=== PATIENT | female | born 1940 | race Caucasian/White ===

== ENCOUNTER 2020-07-22 09:08 | Outpatient (CLI) | payer MEDICARE, SELFPAY ==
[2020-07-22 09:26] LABS: Basophils Percent Auto 0.6 % (0.2-1.2); Eosinophils Absolute Auto 0.1 K/mm3 (0-0.3); Eosinophils Percent Auto 2.3 % (0-4.4); Hematocrit 34.4 % (37.0-47.0); Hemoglobin 10.6 g/dL (12.0-15.0); Immature Granulocyte Absolute 0.01 K/mm3 (0.00-0.031); Immature Granulocyte Percent A 0.2 % (0-0.5); Immature Reticulocyte Fraction 14.9 % (3.0-15.9); Lymphocytes Absolute Auto 1.28 K/mm3 (0.9-3.2); Lymphocytes Percent Auto 26.3 % (18.3-44.2); Mean Corpuscular HGB Conc 30.8 g/dl (32-36); Mean Corpuscular Hemoglobin 24.7 pg (26-34); Mean Corpuscular Volume 80.2 fl (80-100); Mean Platelet Volume 9.6 fl (7.4-10.4); Monocytes Absolute Auto 0.4 K/mm3 (0.1-0.6); Monocytes Percent Auto 8.6 % (2.6-8.5); Platelet Count Result 196 k/mm3 (150-375); Red Blood Count 4.29 M/mm3 (4.2-5.4); Red Cell Distribution Width 17.1 % (11.5-14.5); Reticulocyte Hemoglobin Conten 30.4 pg (28.2-35.7); Reticulocyte Percent 2.18 % (0.7-4.3); Reticulocytes Absolute 0.09 B/L (32.2-175.7); White Blood Count 4.9 K/mm3 (4.5-10.0)
[2020-07-22 11:01] LABS: Iron 46 ug/dL (37-170)
[2020-07-22 11:02] LABS: Alanine Aminotransferase 17 U/L (4-35); Albumin Level 4.3 g/dL (3.5-5.1); Alkaline Phosphatase 40 U/L (38-126); Anion Gap 9 mmol/L (8-16); Aspartate Amino Transferase 26 U/L (14-36); Bilirubin,Total 0.4 mg/dL (0.2-1.3); Blood Urea Nitrogen 27 mg/dL (7-17); Calcium 9.7 mg/dL (8.4-10.2); Carbon Dioxide 25 mmol/L (22-30); Chloride 103 mmol/L (98-107); Estimated Glomerular Filt Rate > 60; Glucose 273 mg/dL (65-105); Lactate Dehydrogenase 476 U/L (313-618); Potassium 4.6 mmol/L (3.4-5.0); Sodium 137 mmol/L (137-145)
[2020-07-22 11:10] LABS: Percent Iron Saturation 8 % (20-50)
[2020-07-22 12:08] LABS: Folic Acid 6.4 ng/mL (2.76->20)
== END 2020-07-22 09:09 | disposition home or self-care (01) ==
PROVIDERS: Visit Provider Internal Medicine Hematology & Oncology
DX: D64.9 Anemia, unspecified (principal)
CPT/HCPCS: 36415; 80053; 82607; 82728; 82746; 83540; 83550; 83615; 84443; 85025; 85046

== ENCOUNTER 2021-04-15 17:50 | Observation (INO) | payer MEDICARE, SELFPAY ==
[2021-04-15 18:01] VITALS: BP 138/42; PULSE 70; RESP 16; TEMP 36.6; O2SAT 97
[2021-04-15 19:59] VITALS: BP 148/54; PULSE 67; RESP 14; TEMP 36.8; O2SAT 98
[2021-04-15 20:01] LABS: Basophils Percent Auto 0.5 % (0.2-1.2); Eosinophils Absolute Auto 0.2 K/mm3 (0-0.3); Eosinophils Percent Auto 2.7 % (0-4.4); Hematocrit 26.2 % (37.0-47.0); Hemoglobin 7.6 g/dL (12.0-15.0); Immature Granulocyte Absolute 0.02 K/mm3 (0.00-0.031); Immature Granulocyte Percent A 0.3 % (0-0.5); Immature Reticulocyte Fraction 26.5 % (3.0-15.9); Lymphocytes Absolute Auto 1.54 K/mm3 (0.9-3.2); Lymphocytes Percent Auto 25.8 % (18.3-44.2); Mean Corpuscular Hemoglobin 21.1 pg (26-34); Mean Corpuscular Volume 72.8 fl (80-100); Monocytes Absolute Auto 0.6 K/mm3 (0.1-0.6); Monocytes Percent Auto 9.4 % (2.6-8.5); Neutrophils Absolute Auto 3.7 K/mm3 (1.3-6.7); Neutrophils Percent Auto 61.3 % (45.5-73.1); Platelet Count Result 187 k/mm3 (150-375); Red Cell Distribution Width 16.2 % (11.5-14.5); Reticulocyte Hemoglobin Conten 19.6 pg (28.2-35.7); Reticulocyte Percent 2.09 % (0.7-4.3); Reticulocytes Absolute 0.08 B/L (32.2-175.7)
[2021-04-15 20:15] VITALS: BP 148/59; PULSE 69; RESP 18; O2SAT 98
[2021-04-15 20:20] LABS: Alanine Aminotransferase 11 U/L (4-35); Albumin Level 4.2 g/dL (3.5-5.1); Alkaline Phosphatase 41 U/L (38-126); Anion Gap 10 mmol/L (8-16); Aspartate Amino Transferase 27 U/L (14-36); Bilirubin,Total 0.3 mg/dL (0.2-1.3); Blood Urea Nitrogen 29 mg/dL (7-17); Calcium 9.4 mg/dL (8.4-10.2); Carbon Dioxide 24 mmol/L (22-30); Chloride 107 mmol/L (98-107); Estimated CRCL calculation 31 ml/min; Estimated Glomerular Filt Rate 43; Glucose 193 mg/dL (65-105); Potassium 4.1 mmol/L (3.4-5.0); Sodium 141 mmol/L (137-145)
[2021-04-15 20:21] LABS: Glucose Point of Care 181 mg/dl (65-105)
[2021-04-15 20:29] LABS: Anisocytosis 2+ (NORMAL); Hypochromasia 1+ (NORMAL); Platelet Estimate Adequate (Adequate)
[2021-04-15 21:00] LABS: Iron 25 ug/dL (37-170)
[2021-04-15 21:09] LABS: Percent Iron Saturation 5 % (20-50)
--- NOTE | 2021-04-15 21:16 | ED.GENADULT ---
HPI - General Adult General Chief complaint: Recheck/Abnormal Lab/Rx Stated complaint: LOW BLOOD COUNTS Time Seen by Provider: 04/15/21 20:16 Source: patient and family Mode of arrival: ambulatory Limitations: no limitations History of Present Illness HPI narrative: 80-year-old with a history of A. fib on Eliquis, hypertension, diabetes, aortic stenosis, chronic iron deficiency anemia was brought in by family with low hemoglobin. Patient states that she was getting preop labs and was found to have low hemoglobin. Her doctor called her to go to the ER. Patient complains of shortness of breath with minimal ambulation. She denied any chest pain. She denies any blood or black-colored stool. No history of abdominal pain as per the daughter she is scheduled for TAVR in the next few days. Onset (ago): unknown Associated symptoms: denies other symptoms Review of Systems Review of Systems: All systems reviewed & are unremarkable except as noted in HPI and below Constitutional: Constitutional: Reports no additional constitutional complaints Eyes: Eyes: Reports no additional eye complaints ENT: Reports system reviewed and no additional complaints, except as documented Cardiovascular: Cardiovascular: Reports as per HPI Respiratory: Respiratory: Reports dyspnea Gastrointestinal: Gastrointestinal: Reports no additional gastrointestinal complaints Musculoskeletal: Musculoskeletal: Reports no additional musculoskeletal complaints Integumentary/Breasts: Skin/Breast: Reports system reviewed and no additional complaints, except as docu Exam Narrative: Exam Narrative: GENERAL: Well-appearing, well-nourished, and in no acute distress. Very hard of hearing HEAD: Normocephalic, atraumatic. EYES: PERRLA and EOMI. ENT: Nares clear, no rhinorrhea or epistaxis. Mucous membranes moist. NECK: Supple. CHEST: Clear to auscultation. No respiratory distress. HEART: Regular rate and rhythm. Systolic murmur heard in the aortic area normal peripheral pulses. ABDOMEN: Soft, nontender, nondistended, normal active bowel sounds. Stool guaiac negative EXTREMITIES: Normal range of motion. No edema. SKIN: Warm, dry, no rash. NEURO: No focal deficits. Alert and oriented x3. PSYCH: Normal mood and affect. Course Course Emergency Course: Inform patient and family about her lab work. Will admit to the hospital for blood transfusion as she is quite symptomatic. Discussed with Dr. Montero who admit agreed to admit the patient and was at the bedside to evaluate the patient Vital Signs Vital signs: Vital Signs Temperature 36.6 C 04/15/21 18:01 Pulse Rate 70 04/15/21 18:01 Respiratory Rate 16 04/15/21 18:01 Blood Pressure 138/42 L 04/15/21 18:01 Pulse Oximetry 97 04/15/21 18:01 Temperature 36.8 C 04/15/21 19:59 Pulse Rate 69 04/15/21 20:15 Respiratory Rate 18 04/15/21 20:15 Blood Pressure 148/59 H 04/15/21 20:15 Pulse Oximetry 98 04/15/21 20:15 Medical Decision Making Vital Signs Vital Signs: Vital Signs Temperature 36.6 C 04/15/21 18:01 Pulse Rate 70 04/15/21 18:01 Respiratory Rate 16 04/15/21 18:01 Blood Pressure 138/42 L 04/15/21 18:01 Pulse Oximetry 97 04/15/21 18:01 Temperature 36.8 C 04/15/21 19:59 Pulse Rate 69 04/15/21 20:15 Respiratory Rate 18 04/15/21 20:15 Blood Pressure 148/59 H 04/15/21 20:15 Pulse Oximetry 98 04/15/21 20:15 Lab Data Result diagrams: 04/15/21 19:55 04/15/21 19:55 Labs: Lab Results 04/15/21 04/15/21 04/15/21 Range/Units 19:55 19:55 19:55 WBC 6.0 (4.5-10.0) K/mm3 RBC 3.60 L (4.2-5.4) M/mm3 Hgb 7.6 L (12.0-15.0) g/dL Hct 26.2 L (37.0-47.0) % MCV 72.8 L (80-100) fl MCH 21.1 L (26-34) pg MCHC 29.0 L (32-36) g/dl RDW 16.2 H (11.5-14.5) % Plt Count 187 (150-375) k/mm3 MPV 10.0 (7.4-10.4) fl Immature Gran % (Auto) 0.3 (0-0.5) % Neut % (Auto) 61.3 (45.5-73
[2021-04-15 23:55] VITALS: BMI 29.7
--- NOTE | 2021-04-15 23:58 | ADMGEN ---
This patient, Una Delong, was admitted to IMU Room 232-01. Patient/family oriented to hospital policies and general routines including ID bracelet, bed and alarms, visiting hours, pain management, procedures, bathroom and other care routines, personal items, smoking policy, room service/diet, and visiting hours. Information on how to activate the Rapid Response Team has been discussed. Patient/Family are encouraged to report perceived risks to care and to ask questions if they do not understand what they are told or what they should do. Vanessa CUNNINGHAM arrived [id number]
[2021-04-16] VITALS (12 sets, daily range): BP systolic 118–150; BP diastolic 48–58; PULSE 60–81; RESP 12–20; TEMP 36.2–36.8; O2SAT 92–96
[2021-04-16 01:32] LABS: Glucose Point of Care 265 mg/dl (65-105)
--- NOTE | 2021-04-16 02:57 | PC.NURSE ---
Call placed to Dr. Butler at 0135 cause ED note states admitted for blood transfusion but didn't have orders for any. Type and Screen completed.
[2021-04-16] MEDS: ACETAMINOPHEN 325 MG TABLET 650 MG PO (03:39)
--- NOTE | 2021-04-16 04:47 | PM.IMHP ---
H&P: HPI History of Present Illness Date/Time: 04/16/21 04:47 Chief Complaint: Fatigue Narrative: This is a 80-year-old female with past medical history significant for type 2 diabetes mellitus, dyslipidemia, hypertension, iron deficiency anemia, aortic stenosis patient is going for repair. Patient presented to the emergency room due to increasingly worsening fatigue and shortness of breath she had been started in the outpatient setting for iron deficiency anemia she is in the midst of getting approved for IV iron infusion. Today in the emergency room she was found to have decreased hemoglobin. Patient denies any hemoptysis hematemesis hematochezia nor melena, she denies any nausea vomiting diarrhea abdominal pain, has had shortness of breath no cough no sputum production no fevers no rigors no chills also has had palpitations decreased stamina no leg swelling. Preliminary workup was significant for hemoglobin of 7.6 Review of Systems Review of Systems: All systems reviewed & are unremarkable except as noted in HPI and below Constitutional: Constitutional: Reports no additional constitutional complaints Eyes: Eyes: Reports no additional eye complaints ENT: Reports system reviewed and no additional complaints, except as documented Cardiovascular: Cardiovascular: Reports as per HPI and Reports dyspnea Respiratory: Respiratory: Reports dyspnea Gastrointestinal: Gastrointestinal: Reports no additional gastrointestinal complaints Musculoskeletal: Musculoskeletal: Reports no additional musculoskeletal complaints Integumentary/Breasts: Skin/Breast: Reports system reviewed and no additional complaints, except as docu COUNT INCLUDES THE [facility] Family History Family History (Updated 04/15/21 @ 23:54 by Carol Sumner RN) Father Lung cancer Sibling Lung cancer Mother Colon cancer Social History Social History Smoking status: Never smoker Second hand tobacco smoke exposure: Yes Alcohol intake: never Substance use: never Gender identity (if verbalized by the patient): Female Spiritual care concerns: No Meds Home Medications and Allergies Home Medications Medication Instructions Recorded Confirmed Type diltiazem HCl 180 mg PO BID 04/16/21 04/16/21 History fenofibrate nanocrystallized 145 mg PO DAILY 04/16/21 04/16/21 History glipizide 10 mg PO DAILY 04/16/21 04/16/21 History insulin glargine [Lantus U-100 60 unit SUBCUT DAILY 04/16/21 04/16/21 History Insulin] metformin [Glucophage] 1,000 mg PO DAILY 04/16/21 04/16/21 History metoprolol tartrate 25 mg PO BID 04/16/21 04/16/21 History rosuvastatin 20 mg PO DAILY 04/16/21 04/16/21 History Allergies Allergy/AdvReac Type Severity Reaction Status Date / Time lisinopril AdvReac Cough Verified 04/15/21 22:39 meperidine [From Demerol] AdvReac Nausea and Verified 04/15/21 22:39 Vomiting Vital Signs Vital Signs - 24 hr 04/15/21 18:01 04/15/21 19:59 04/15/21 20:15 Temperature 98 F 98.3 F Pulse Rate 70 67 69 Respiratory Rate 16 14 18 Blood Pressure 138/42 L 148/54 H 148/59 H Pulse Oximetry 97 98 98 04/16/21 00:00 04/16/21 02:00 Temperature 97.6 F Pulse Rate 64 64 Respiratory Rate 16 Blood Pressure 129/51 L Pulse Oximetry 96 Exam Narrative: Exam Narrative: Laying in [facility] Const: General: comfortable, no acute distress, well developed, alert, awake and other (Generalized pallor) Nutritional Appearance: average body habitus Orientation/consciousness: patient oriented x3 HENMT: Head: normal to inspection, normocephalic and atraumatic Ears: hearing grossly normal bilaterally Face and sinus: normal facial exam Eyes: General: appearance normal, both eyes and all related structures Pupils: Equal, round and reactive pupils present EOM: EOMs intact bilaterally Neck: Neck: full ROM, no lymphadenopathy and no JVD Thyroid: thyroid normal Lymphatic: no lymphadenopathy noted Resp: Effort
[2021-04-16 05:03] LABS: Glucose Point of Care 146 mg/dl (65-105)
[2021-04-16 05:35] LABS: Basophils Percent Auto 0.6 % (0.2-1.2); Eosinophils Absolute Auto 0.2 K/mm3 (0-0.3); Eosinophils Percent Auto 3.5 % (0-4.4); Hematocrit 26.7 % (37.0-47.0); Hemoglobin 7.6 g/dL (12.0-15.0); Immature Granulocyte Absolute 0.03 K/mm3 (0.00-0.031); Immature Granulocyte Percent A 0.6 % (0-0.5); Lymphocytes Absolute Auto 1.35 K/mm3 (0.9-3.2); Lymphocytes Percent Auto 26.4 % (18.3-44.2); Mean Corpuscular HGB Conc 28.5 g/dl (32-36); Mean Corpuscular Hemoglobin 20.7 pg (26-34); Mean Corpuscular Volume 72.6 fl (80-100); Mean Platelet Volume 10.1 fl (7.4-10.4); Monocytes Absolute Auto 0.5 K/mm3 (0.1-0.6); Neutrophils Percent Auto 58.9 % (45.5-73.1); Platelet Count Result 185 k/mm3 (150-375); Red Blood Count 3.68 M/mm3 (4.2-5.4); Red Cell Distribution Width 16.2 % (11.5-14.5); White Blood Count 5.1 K/mm3 (4.5-10.0)
[2021-04-16 06:04] LABS: Platelet Estimate Adequate (Adequate)
[2021-04-16 06:05] LABS: Anisocytosis 1+ (NORMAL); Hypochromasia 1+ (NORMAL)
--- NOTE | 2021-04-16 06:54 | PC.NURSE ---
Pt called out ~0335 asking for nurse, asked if nurse should bring anything pt requested tylenol. Pts nurse was in another pts room. This nurse brought her tylenol, pt became upset, complaining that her nurse couldn't even come speak with her. This nurse explained she would be happy to come talk with her after she finished with her other patient. Pt remained upset, with multiple complaints about waiting for her blood products to be ordered, it was explained to her multiple times that the doctor had been called and her nurse was working on it.
--- NOTE | 2021-04-16 07:04 | PC.NURSE ---
On my third attempt to call I spoke with Dr. Montero again she had been tied up w in emergencies and she gave me an order for 1 unit PRBC. Patient has been very angry and ranted about not recieving her blood fast enough. After I took her the consent and went to explain it she informed me she needed to read it. I said ok and told her I would be back. While I was off the floor assisting another patient she called out mad that no one explained the consent to her.
[2021-04-16] MEDS: METOPROLOL TARTRATE 25 MG TABLET PO (08:51)
[2021-04-16] MEDS: FENOFIBRATE NANOCRYSTALLIZED 145 MG TABLET PO (08:51)
[2021-04-16] MEDS: ROSUVASTATIN 10 MG TABLET 20 MG PO (08:52)
[2021-04-16] MEDS: dilTIAZem HCL CD 180 MG CAP.ER.24H PO (08:52)
[2021-04-16 08:54] LABS: Glucose Point of Care 153 mg/dl (65-105)
[2021-04-16 12:20] LABS: Hematocrit 29.6 % (37.0-47.0); Hemoglobin 8.8 g/dL (12.0-15.0)
[2021-04-16 12:23] LABS: Glucose Point of Care 275 mg/dl (65-105)
[2021-04-16] MEDS: INSULIN ASPART (*BKC) 100 UNITS/ML SUB-Q (12:28)
[2021-04-16] MEDS: INSULIN GLARGINE (*BKC) 100 UNITS/ML 60 UNITS SUB-Q (12:28)
--- NOTE | 2021-04-16 14:05 | PC.NURSE ---
This patient, Una Delong, was transferred to [325 ] on 04/16/21 at 1335. Personal belongings sent with patient. Report given to [ ]. Appropriate documentation sent with patient.
--- NOTE | 2021-04-16 15:25 | PM.DS ---
DS: Admitting Diagnosis Admitting Diagnosis Admitting Diagnosis: Chief Complaint: Fatigue DS: Discharge Diagnosis Discharge Diagnosis (1) KINZA (iron deficiency anemia): Code(s): D50.9 - Iron deficiency anemia, unspecified Status: Acute Assessment and Plan: Patient will get 1 unit of packed red blood cells transfusion in view that she is very symptomatic Is in the midst of getting approved for IV iron infusion Will follow-up in outpatient setting with Hematology-Oncology Supportive care (2) Aortic stenosis: Code(s): I35.0 - Nonrheumatic aortic (valve) stenosis Status: Acute Assessment and Plan: On beta-blockers Will go for repair (3) Atrial fibrillation: Code(s): I48.91 - Unspecified atrial fibrillation Status: Acute Assessment and Plan: Stable On calcium channel violet diltiazem Continue to monitor Holding blood thinners Patient is on novel anticoagulant at home (4) Diabetes mellitus: Code(s): E11.9 - Type 2 diabetes mellitus without complications Status: Acute Assessment and Plan: Holding metformin Holding glipizide Continue insulin Continue to monitor Follow-up in outpatient setting Quarterly hemoglobin A1c Stable (5) HTN (hypertension), benign: Code(s): I10 - Essential (primary) hypertension Status: Acute DS: Summary Hospital Course Reason for hospitalization: Chief Complaint: Fatigue Narrative: This is a 80-year-old female with past medical history significant for type 2 diabetes mellitus, dyslipidemia, hypertension, iron deficiency anemia, aortic stenosis patient is going for repair. Patient presented to the emergency room due to increasingly worsening fatigue and shortness of breath she had been started in the outpatient setting for iron deficiency anemia she is in the midst of getting approved for IV iron infusion. Today in the emergency room she was found to have decreased hemoglobin. Patient denies any hemoptysis hematemesis hematochezia nor melena, she denies any nausea vomiting diarrhea abdominal pain, has had shortness of breath no cough no sputum production no fevers no rigors no chills also has had palpitations decreased stamina no leg swelling. Preliminary workup was significant for hemoglobin of 7.6 Hospital Course: patient is 80-year-old female presented with fatigue secondary to anemia plan was to get a GI consult however because of the weekend there is no GI available for any procedure, patient was transfused 2 units of pack RBC remains clinically stable, will discharge the patient home today patient returns to hospital on Monday and will be admitted for GI workup and further recommendation to follow. Status at Discharge Functional status at discharge: independent ambulation Overall status at discharge: patient is back to baseline Time Spent with Patient Time attestation: Total time spent providing and/or coordinating discharge services: Patient was seen and examined at the time of the discharge Condition at discharge is stable Code status: Full code. Time spent preparing discharge summary, discharge medications, discussing discharge planning with shoe parts caser and patient is 35 minutes. Time spent: Greater than 30 minutes Exam Narrative: Exam Narrative: elderly frail Patient is comfortable, NAD HEENT: eyes are clear and none icteric LUNGS:CTA HEART: RR S1S2 ABD: BS+, Soft and nontender Lower extremities: no edema SKIN: nonjaundiced Neuro: grossly intact. DS: Data Data Completed and Pending Labs on day of discharge: Labs from last 24 hours 04/16/21 04/16/21 04/16/21 12:02 11:23 07:54 WBC RBC Hgb 8.8 L Hct 29.6 L MCV MCH MCHC RDW Plt Count MPV Immature Gran % (Auto) Neut % (Auto) Lymph % (Auto) [place] % (Auto) Eos % (Auto) Baso % (Auto) Lymph # (Auto) [place] # (Auto) Eos # (Auto) Baso # (Auto) Abs Immat Gran (auto) Absolute
[2021-04-16 17:28] LABS: Immature Reticulocyte Fraction 25.4 % (3.0-15.9); Reticulocyte Hemoglobin Conten 20.3 pg (28.2-35.7); Reticulocyte Percent 1.98 % (0.7-4.3); Reticulocytes Absolute 0.08 B/L (32.2-175.7)
--- NOTE | 2021-04-16 17:37 | PC.NURSE ---
Pt is being discharged home with her daughter. Dr Plata and Dr Mosher have requested that the pt comes back on Monday as a direct admit for a GI consult and an iron infusion. Went over discharge instructions with pt and daughter, daughter exhibited good understanding. Pt's IV has been removed. Pt stated that Dr Mosher had requested she stopped taking her Eliquis due to her being scheduled for a procedure on Mon of next week. This was also passed on to the daughter. Dr Plata had me instruct the pt to be NPO after midnight Sun night/Monday morning and to only take heart medication with a small sip of water. Dr Plata instructed me to tell pt's daughter to call Dr. Mosher's office Monday morning when they are leaving the house to come to the hospital, and he will provide them with an admitting Dr. They are to go to admitting and not ER. Pt's daughter exhibits good understanding of all discharge instructions and took notes as we were speaking. Pt assisted to the front of the building by wheelchair and assisted into her daughter's car, by staff.
== END 2021-04-16 17:30 | disposition home or self-care (01) ==
LOC: ANHED 21:56 → ANHIMU 23:04 → ANH3MEDSUR 04-16 15:25 → ANHIMU 04-20 10:04
PROVIDERS: Internal Medicine Hematology & Oncology; Admitting Provider Internal Medicine; Emergency Provider Family Medicine; PCP Internal Medicine; Visit Provider Family Medicine
DX: D50.9 Iron deficiency anemia, unspecified (principal); R53.83 Other fatigue; I35.0 Nonrheumatic aortic (valve) stenosis; I48.91 Unspecified atrial fibrillation; E11.9 Type 2 diabetes mellitus without complications; E78.5 Hyperlipidemia, unspecified; I10 Essential (primary) hypertension; R06.02 Shortness of breath; Z79.4 Long term (current) use of insulin; Z79.01 Long term (current) use of anticoagulants
CPT/HCPCS: 36415; 36430; 80053; 82948; 83540; 83550; 85014; 85018; 85025; 85046; 86850; 86900; 86901; 86923; 96374; 99285; A9270; G0378; J1756; J1815; P9016

== ENCOUNTER 2021-04-19 15:00 | Observation (INO) | payer MEDICARE, SELFPAY ==
--- NOTE | 2021-04-19 15:00 | ADMGEN ---
This patient, Una Delong, was admitted to Medical Room 349-01. Patient/family oriented to hospital policies and general routines including ID bracelet, bed and alarms, visiting hours, pain management, procedures, bathroom and other care routines, personal items, smoking policy, room service/diet, and visiting hours. Information on how to activate the Rapid Response Team has been discussed. Patient/Family are encouraged to report perceived risks to care and to ask questions if they do not understand what they are told or what they should do.
[2021-04-19 15:34] VITALS: BP 114/55; PULSE 67; RESP 16; TEMP 36.1; O2SAT 94
[2021-04-19 15:51] VITALS: BMI 30.8
[2021-04-19 16:40] LABS: Glucose Point of Care 152 mg/dl (65-105)
--- NOTE | 2021-04-19 17:02 | WPDGICN ---
Assessment and Plan Assessment and plan (1) Anemia: Qualifiers: Anemia type: unspecified type Qualified Code(s): D64.9 - Anemia, unspecified Code(s): D64.9 - Anemia, unspecified Status: Acute Assessment and Plan: With iron deficiency and a low MCV, she is likely anemic due to chronic blood loss, possible GI source. We will schedule her for EGD and colonoscopy to be done tomorrow. I Discussed the procedures and the prep the patient and her daughter (2) Atrial fibrillation: Code(s): I48.91 - Unspecified atrial fibrillation Status: Acute Assessment and Plan: for now she is off the blood thinner. Ultimately she needs to get her aortic stenosis repaired GI Consult Note Consult date/time: 04/19/21 17:02 HPI: Una Delong is a 80 year old female With a past history of type 2 diabetes, dyslipidemia, , hypertension, and aortic stenosis for which she was going to get repair. She was found a few days ago to be markedly anemic with a hemoglobin of 7.6. She denies seen blood in her stools denies abdominal pain nausea vomiting or significant weight loss. She did receive 1 unit of blood over the weekend and an iron infusion. She is hospitalized today for further treatment to include iron infusion. She does have a family history of colon cancer, her mother and patient herself had a polyp removed at least 10 years ago. She had been on Eliquis but this was held since last Monday. Review of Systems Review of Systems: All systems reviewed & are unremarkable except as noted in HPI and below PMFSH Family History Family History Father Lung cancer Sibling Lung cancer Mother Colon cancer Social History Social History Smoking status: Never smoker Second hand tobacco smoke exposure: Yes Alcohol intake: never Substance use: never Substance use type: does not use Gender identity (if verbalized by the patient): Female Spiritual care concerns: No Meds Home Medications and Allergies Home Medications Medication Instructions Recorded Confirmed Type Lantus U-100 Insulin 60 unit SUBCUT DAILY 04/16/21 04/19/21 History diltiazem HCl 180 mg PO BID 04/16/21 04/19/21 History fenofibrate nanocrystallized 145 mg PO DAILY 04/16/21 04/19/21 History glipizide 10 mg PO DAILY 04/16/21 04/19/21 History metformin [Glucophage] 1,000 mg PO DAILY 04/16/21 04/19/21 History metoprolol tartrate 25 mg PO BID 04/16/21 04/19/21 History rosuvastatin 20 mg PO DAILY 04/16/21 04/19/21 History Allergies Allergy/AdvReac Type Severity Reaction Status Date / Time lisinopril AdvReac Cough Verified 04/19/21 16:27 meperidine [From Demerol] AdvReac Nausea and Verified 04/19/21 16:27 Vomiting Vital Signs Vital Signs - 24 hr 04/19/21 15:34 Temperature 36.1 C L Pulse Rate 67 Respiratory Rate 16 Blood Pressure 114/55 L Pulse Oximetry 94 Exam Const: General: cooperative and healthy appearing HENMT: Ears: hearing grossly impaired Cardio: Rhythm: regular rhythm GI: Inspection: normal to inspection GI Palp: Yes Soft to palpation, No Tenderness to palpation present (GI) and Yes No hepatosplenomegaly present Auscultation: normal bowel sounds
[2021-04-19] MEDS: SODIUM CHLORIDE 0.9% IV 1,000 ML 75 ML IV CONT (17:22)
[2021-04-19] MEDS: PEG (High)/E-LYTE SOLN 4,000 ML BTL 3000 ML PO (17:22)
[2021-04-19 17:43] LABS: Partial Thromboplastin Time 29.9 SECONDS (22.3-36.8)
--- NOTE | 2021-04-19 19:00 | PM.IMHP ---
H&P: HPI History of Present Illness Date/Time: 04/19/21 19:00 Chief Complaint: Anemia. Narrative: This is a 80-year-old female with atrial fibrillation on anticoagulation, type 2 diabetes mellitus, hypertension, dyslipidemia, iron deficiency anemia, and aortic stenosis who is being directly admitted for further workup of anemia. She has been seeing Dr. Mosher for her anemia and more recently was started on iron infusions as oral iron cause her constipation. Last week she had preoperative labs drawn in anticipation of an upcoming TAVR and her hemoglobin had fallen to 7.6. She was admitted overnight, was transfused a unit of packed red blood cells, and was discharged home the following day on 04/16/2021. The patient's daughter called the hospital this morning with reports that the patient is to be directly admitted today for GI consultation for further evaluation of her mother's anemia. A discharge summary from the is not available for me to review but it is my understanding that Doctors Vidhi and Sherlyn communicated with each other today and the patient was indeed directly admitted this afternoon. At the time my evaluation the patient has just started her bowel prep in anticipation of upper and lower endoscopy per Dr. Cervantes tomorrow. She has no complaints aside from some frustration regarding the anemia, as she cannot have her TAVR and tell the anemia issue gets resolved. She has been taking Eliquis for paroxysmal atrial fibrillation though has been off of that for about a week due to this worsening anemia. She has never noticed blood in her stool or dark stools. She denies epigastric and abdominal pain. No significant GERD symptoms. She has not had any chest pain. Her shortness of breath seems to have improved somewhat after receiving an iron infusion recently. Review of Systems Review of Systems: Narrative: Twelve systems were reviewed with pertinent positives and negatives as per HPI. She denies fever, chills, and sweats. No cold or flu symptoms. No syncope or near syncope. No chest pain or palpitations. She has had some shortness of breath but that is improved after receiving an iron transfusion and blood transfusion last week. No lower extremity edema. She denies nausea and vomiting. No epistaxis, vaginal bleeding, or hematuria. Except as documented, all other systems were reviewed and are negative PMFSH Past Medical History Medical History (Updated 04/19/21 @ 19:24 by Danay Wilson PA-C) Aortic stenosis Dyslipidemia Hypertension Insulin dependent type 2 diabetes mellitus Iron deficiency anemia Paroxysmal atrial fibrillation Surgical History Surgical History (Updated 04/19/21 @ 19:24 by Danay Wilson PA-C) History of cardiac pacemaker in situ History of hysterectomy Family History Family History Father Lung cancer Sibling Lung cancer Mother Colon cancer Social History Social History (Updated 04/19/21 @ 22:39 by Danay Wilson PA-C) Social History: The patient lives in [place]. She is and was for 54 years. A grandson has been staying with her recently. She is a nonsmoker. No alcohol or illicit substance abuse. She designates her daughter Jed Salamanca as her emergency contact. Code status: Full code. Meds Home Medications and Allergies Home Medications Medication Instructions Recorded Confirmed Type Lantus U-100 Insulin 60 unit SUBCUT DAILY 04/16/21 04/19/21 History diltiazem HCl 180 mg PO BID 04/16/21 04/19/21 History fenofibrate nanocrystallized 145 mg PO DAILY 04/16/21 04/19/21 History glipizide 10 mg PO DAILY 04/16/21 04/19/21 History metformin [Glucophage] 1,000 mg PO DAILY 04/16/21 04/19/21 History metoprolol tartrate 25 mg PO BID 04/16/21 04/19/21 History rosuvastatin 20 mg PO DAILY 04/16/21 04/19/21 History apixaban [Eliquis] 5 mg PO BID 04/19/21 04/19/21 History Allergies Allergy/AdvRe
[2021-04-19 20:22] VITALS: BP 157/77; PULSE 64; RESP 16; TEMP 35.8; O2SAT 97
[2021-04-19 20:36] LABS: Hematocrit 31.6 % (37.0-47.0); Hemoglobin 9.1 g/dL (12.0-15.0); Mean Corpuscular HGB Conc 28.8 g/dl (32-36); Mean Corpuscular Hemoglobin 21.7 pg (26-34); Mean Corpuscular Volume 75.4 fl (80-100); Mean Platelet Volume 9.7 fl (7.4-10.4); Platelet Count Result 172 k/mm3 (150-375); Red Blood Count 4.19 M/mm3 (4.2-5.4); Red Cell Distribution Width 18.9 % (11.5-14.5); White Blood Count 5.9 K/mm3 (4.5-10.0)
[2021-04-19 20:46] LABS: Alanine Aminotransferase 10 U/L (4-35); Albumin Level 4.3 g/dL (3.5-5.1); Alkaline Phosphatase 35 U/L (38-126); Anion Gap 11 mmol/L (8-16); Aspartate Amino Transferase 28 U/L (14-36); Bilirubin,Total 0.3 mg/dL (0.2-1.3); Blood Urea Nitrogen 23 mg/dL (7-17); Calcium 9.1 mg/dL (8.4-10.2); Carbon Dioxide 22 mmol/L (22-30); Chloride 110 mmol/L (98-107); Estimated CRCL calculation 41 ml/min; Estimated Glomerular Filt Rate 60; Glucose 116 mg/dL (65-105); Magnesium 1.9 mg/dL (1.6-2.3); Potassium 3.9 mmol/L (3.4-5.0); Sodium 143 mmol/L (137-145)
[2021-04-19 20:46] LABS: Hemoglobin A1C 6.7 % (<5.7)
[2021-04-19] MEDS: BISACODYL 5 MG TABLET EC 10 MG PO (20:48)
[2021-04-19 20:49] VITALS: PULSE 66
[2021-04-19] MEDS: METOPROLOL TARTRATE 25 MG TABLET PO (20:49)
[2021-04-19] MEDS: dilTIAZem HCL CD 180 MG CAP.ER.24H PO (20:49)
[2021-04-20] VITALS (11 sets, daily range): BP systolic 117–147; BP diastolic 47–97; PULSE 61–109; RESP 15–19; TEMP 35.8–36.6; O2SAT 93–97
[2021-04-20] LABS: Glucose Point of Care 138 mg/dl (65-105)
[2021-04-20 05:36] LABS: Glucose Point of Care 92 mg/dl (65-105)
[2021-04-20 05:59] LABS: Hematocrit 28.8 % (37.0-47.0); Hemoglobin 8.4 g/dL (12.0-15.0); Mean Corpuscular HGB Conc 29.2 g/dl (32-36); Mean Corpuscular Volume 75.6 fl (80-100); Mean Platelet Volume 9.3 fl (7.4-10.4); Platelet Count Result 153 k/mm3 (150-375); Red Blood Count 3.81 M/mm3 (4.2-5.4); Red Cell Distribution Width 18.6 % (11.5-14.5); White Blood Count 4.6 K/mm3 (4.5-10.0)
[2021-04-20 06:03] LABS: INR 1.1; Prothrombin Time 14.5 Seconds (11.1-14.7)
[2021-04-20 06:12] LABS: Alanine Aminotransferase 9 U/L (4-35); Albumin Level 3.8 g/dL (3.5-5.1); Alkaline Phosphatase 29 U/L (38-126); Anion Gap 11 mmol/L (8-16); Aspartate Amino Transferase 28 U/L (14-36); Bilirubin,Total 0.3 mg/dL (0.2-1.3); Blood Urea Nitrogen 17 mg/dL (7-17); Calcium 8.9 mg/dL (8.4-10.2); Carbon Dioxide 22 mmol/L (22-30); Chloride 112 mmol/L (98-107); Estimated CRCL calculation 46 ml/min; Estimated Glomerular Filt Rate > 60; Glucose 83 mg/dL (65-105); Potassium 3.7 mmol/L (3.4-5.0); Sodium 145 mmol/L (137-145)
--- NOTE | 2021-04-20 07:47 | PM.IMPN ---
Progress Note: A&P Assessment and Plan (1) Iron deficiency anemia: Code(s): D50.9 - Iron deficiency anemia, unspecified Status: Acute (2) Paroxysmal atrial fibrillation: Code(s): I48.0 - Paroxysmal atrial fibrillation Status: Acute (3) Aortic stenosis: Code(s): I35.0 - Nonrheumatic aortic (valve) stenosis Status: Acute (4) Insulin dependent type 2 diabetes mellitus: Code(s): E11.9 - Type 2 diabetes mellitus without complications; Z79.4 - group home (current) use of insulin Status: Acute (5) Hypertension: Code(s): I10 - Essential (primary) hypertension Status: Acute (6) Dyslipidemia: Code(s): E78.5 - Hyperlipidemia, unspecified Status: Acute Additional Plan This is a 80-year-old female with atrial fibrillation on anticoagulation, type 2 diabetes mellitus, hypertension, dyslipidemia, iron deficiency anemia, and aortic stenosis who is being directly admitted for further workup of anemia. She has been seeing Dr. Mosher for her anemia and more recently was started on iron infusions as oral iron caused her constipation. Last week she had preoperative labs drawn in anticipation of an upcoming TAVR and her hemoglobin had fallen to 7.6. She was admitted overnight, was transfused a unit of packed red blood cells, and was discharged home the following day on 04/16/2021. The patient's daughter called the hospital this morning with reports that the patient is to be directly admitted today for GI consultation for further evaluation of her mother's anemia. The patient started her bowel prep in anticipation of upper and lower endoscopy per Dr. Cervantes tomorrow. She has no complaints aside from some frustration regarding the anemia, as she cannot have her TAVR and tell the anemia issue gets resolved. She has been taking Eliquis for paroxysmal atrial fibrillation though has been off of that for about a week due to this worsening anemia. She has never noticed blood in her stool or dark stools. She denies epigastric and abdominal pain. No significant GERD symptoms. She has not had any chest pain. Her shortness of breath seems to have improved somewhat after receiving an iron infusion recently.The patient is being directly admitted for further evaluation of anemia. Her hemoglobin today is 9.1, up a little bit from 8.8 on 04/16/2021. Stool was Hemoccult negative on 04/14/2021 however she is on long-term anticoagulation and may very well have an occult GI bleed causing her anemia. As such she is undergoing bowel prep for endoscopy per Dr. Cervantes tomorrow. She is hemodynamically stable and her blood pressures will be monitored closely. She currently sounds to be in a sinus rhythm. Will continue with diltiazem and metoprolol but continue to hold apixaban given the anemia. I will hold her insulin and oral hypoglycemics at this time as she is NPO, and check hemoglobin A1c. Initiate sliding scale insulin, Accu-Cheks, and hypoglycemic protocol. # acute on chronic anemia # iron deficiency anemia intolerant to oral iron # htn # dyslipidema # type 2 DM # atrial fibrillation # aortic stenosis planned TAVR # care home anticoagulant use # family hx of colon cancer # colon polyps in the past # s/p pacemaker Apixaban on hold GI workup ongoing continue to mointor h and h occult blood negative. iv venofer ordered. discused [facility] at [facility]. GI and Dr. Mosher consulted. Subjective Date/time seen: 04/20/21 07:47 Interval history: no overnight events, going for the tests this morning. no abdominal pain, nausea, vomiting, she feels thirsty. dahaimtet clarisse the phone and updated her. Review of Systems Review of Systems: All systems reviewed & are unremarkable except as noted in HPI and below Exam Narrative: Exam Narrative: General: Well-developed elderly female sitting up in bed in no acute distress. HEENT: Wearing glasses. PERRL, EOMI. Sclerae anicteric. Oral mucosa moist. Nec
--- NOTE | 2021-04-20 08:04 | WPDANESEPPF ---
Anes - Initial Pre Proc Eval Procedure: Operation Date: 04/20/21 11:30 Proposed Procedures p Esophagogastroduodenoscopy & Colonoscopy - Rommel Cervantes MD Date/Time: 04/20/21 08:04 Surgeon: Veronica Plata MD Pre Op Diagnosis: Anemia Patient Data Age: 80 Gender: F Height: 1.55 m Weight: 78.1 kg Last Vital Signs Temp 36.5 C 04/20/21 06:00 Pulse 68 04/20/21 06:00 Resp 18 04/20/21 06:00 BP 139/52 L 04/20/21 06:00 Pulse Ox 94 04/20/21 06:00 Allergies Allergy/AdvReac Type Severity Reaction Status Date / Time lisinopril AdvReac Cough Verified 04/20/21 10:52 meperidine [From Demerol] AdvReac Nausea and Verified 04/20/21 10:52 Vomiting Home Medications Medication Instructions Recorded Confirmed Type Lantus U-100 Insulin 60 unit SUBCUT DAILY 04/16/21 04/19/21 History diltiazem HCl 180 mg PO BID 04/16/21 04/19/21 History fenofibrate nanocrystallized 145 mg PO DAILY 04/16/21 04/19/21 History glipizide 10 mg PO DAILY 04/16/21 04/19/21 History metformin [Glucophage] 1,000 mg PO DAILY 04/16/21 04/19/21 History metoprolol tartrate 25 mg PO BID 04/16/21 04/19/21 History rosuvastatin 20 mg PO DAILY 04/16/21 04/19/21 History apixaban [Eliquis] 5 mg PO BID 04/19/21 04/19/21 History Laboratory Tests 04/19/21 04/19/21 04/19/21 16:35 17:14 20:30 WBC RBC Hgb Hct MCV MCH MCHC RDW Plt Count MPV PT INR APTT 29.9 SECONDS SECONDS (22.3-36.8) Sodium 143 mmol/L mmol/L (137-145) Potassium 3.9 mmol/L mmol/L (3.4-5.0) Chloride 110 mmol/L H mmol/L (98-107) Carbon Dioxide 22 mmol/L mmol/L (22-30) Anion Gap 11 mmol/L mmol/L (8-16) BUN 23 mg/dL H mg/dL (7-17) Creatinine 0.90 mg/dL mg/dL (0.7-1.0) Estim Creat Clear Calc 41 ml/min ml/min Estimated GFR 60 (59 - ) Glucose 116 mg/dL H mg/dL (65-105) POC Capillary Glucose 152 mg/dl H mg/dl (65-105) Hemoglobin A1c Calcium 9.1 mg/dL mg/dL (8.4-10.2) Magnesium 1.9 mg/dL mg/dL (1.6-2.3) Total Bilirubin 0.3 mg/dL mg/dL (0.2-1.3) AST 28 U/L U/L (14-36) ALT 10 U/L U/L (4-35) Alkaline Phosphatase 35 U/L L U/L (38-126) Total Protein 8.0 g/dL g/dL (6.3-8.2) Albumin 4.3 g/dL g/dL (3.5-5.1) Blood Type Antibody Screen 04/19/21 04/19/21 04/19/21 20:31 20:31 20:31 WBC 5.9 K/mm3 K/mm3 (4.5-10.0) RBC 4.19 M/mm3 L M/mm3 (4.2-5.4) Hgb 9.1 g/dL L g/dL (12.0-15.0) Hct 31.6 % L % (37.0-47.0) MCV 75.4 fl L fl (80-100) MCH 21.7 pg L pg (26-34) MCHC 28.8 g/dl L g/dl (32-36) RDW 18.9 % H % (11.5-14.5) Plt Count 172 k/mm3 k/mm3 (150-375) MPV 9.7 fl fl (7.4-10.4) PT INR APTT Sodium Potassium Chloride Carbon Dioxide Anion Gap BUN Creatinine Estim Creat Clear Calc Estimated GFR Glucose POC Capillary Glucose Hemoglobin A1c 6.7 % H % (<5.7) Calcium Magnesium Total Bilirubin AST ALT Alkaline Phosphatase Total Protein Albumin Blood Type AB Positive Antibody Screen Negative 04/19/21 04/20/21 04/20/21 23:55 05:25 05:46 WBC 4.6 K/mm3 K/mm3 (4.5-10.0) RBC 3.81 M/mm3 L M/mm3 (4.2-5.4) Hgb 8.4 g/dL L g/dL (12.0-15.0) Hct 28.8 % L % (37.0-47.0) MCV 75.6 fl L fl (80-100) MCH 22.0 pg
[2021-04-20] MEDS: SODIUM CHLORIDE 0.9% IV 1,000 ML 75 ML IV CONT (08:26)
[2021-04-20 08:32] LABS: Glucose Point of Care 69 mg/dl (65-105)
[2021-04-20] MEDS: DEXTROSE 50% 25 GM/50 ML SYRINGE IV PUSH (08:32)
[2021-04-20] MEDS: METOPROLOL TARTRATE 25 MG TABLET PO ×2 (08:38→18:32)
[2021-04-20] MEDS: dilTIAZem HCL CD 180 MG CAP.ER.24H PO ×2 (08:39→18:35)
[2021-04-20 09:30] LABS: Glucose Point of Care 147 mg/dl (65-105)
[2021-04-20] MEDS: IRON SUCROSE COMPLEX 200 MG in SODIUM CHLORIDE 0.9% IV 50 ML 120 MG IVPB (09:43)
--- NOTE | 2021-04-20 10:41 | PC.NURSE ---
To GI Lab per mark, IV 22gauge left hand saline locked. Report given to MARISA Aparicio.
[2021-04-20 10:53] LABS: Glucose Point of Care 82 mg/dl (65-105)
[2021-04-20] MEDS: LACTATED RINGERS 1,000 ML 150 ML IV CONT (10:54)
[2021-04-20 12:50] LABS: Glucose Point of Care 85 mg/dl (65-105)
[2021-04-20] MEDS: ROSUVASTATIN 10 MG TABLET 20 MG PO (13:22)
[2021-04-20] MEDS: FENOFIBRATE NANOCRYSTALLIZED 145 MG TABLET PO (13:22)
--- NOTE | 2021-04-20 16:50 | PM.DS ---
DS: Admitting Diagnosis Admitting Diagnosis Admitting Diagnosis: anemia DS: Discharge Diagnosis Discharge Diagnosis (1) Iron deficiency anemia: Code(s): D50.9 - Iron deficiency anemia, unspecified Status: Acute (2) Paroxysmal atrial fibrillation: Code(s): I48.0 - Paroxysmal atrial fibrillation Status: Acute (3) Anemia: Qualifiers: Anemia type: unspecified type Qualified Code(s): D64.9 - Anemia, unspecified Code(s): D64.9 - Anemia, unspecified Status: Acute (4) Aortic stenosis: Code(s): I35.0 - Nonrheumatic aortic (valve) stenosis Status: Acute (5) Atrial fibrillation: Code(s): I48.91 - Unspecified atrial fibrillation Status: Acute DS: Summary Hospital Course Hospital Course: s is a 80-year-old female with atrial fibrillation on anticoagulation, type 2 diabetes mellitus, hypertension, dyslipidemia, iron deficiency anemia, and aortic stenosis who is being directly admitted for further workup of anemia. She has been seeing Dr. Mosher for her anemia and more recently was started on iron infusions as oral iron caused her constipation. Last week she had preoperative labs drawn in anticipation of an upcoming TAVR and her hemoglobin had fallen to 7.6. She was admitted overnight, was transfused a unit of packed red blood cells, and was discharged home the following day on 04/16/2021. The patient's daughter called the hospital this morning with reports that the patient is to be directly admitted today for GI consultation for further evaluation of her mother's anemia. The patient started her bowel prep in anticipation of upper and lower endoscopy per Dr. Cervantes tomorrow. She has no complaints aside from some frustration regarding the anemia, as she cannot have her TAVR and tell the anemia issue gets resolved. She has been taking Eliquis for paroxysmal atrial fibrillation though has been off of that for about a week due to this worsening anemia. She has never noticed blood in her stool or dark stools. She denies epigastric and abdominal pain. No significant GERD symptoms. She has not had any chest pain. Her shortness of breath seems to have improved somewhat after receiving an iron infusion recently.The patient is being directly admitted for further evaluation of anemia. Her hemoglobin today is 9.1, up a little bit from 8.8 on 04/16/2021. Stool was Hemoccult negative on 04/14/2021 however she is on long-term anticoagulation and may very well have an occult GI bleed causing her anemia. As such she is undergoing bowel prep for endoscopy per Dr. Cervantes tomorrow. She is hemodynamically stable and her blood pressures will be monitored closely. She currently sounds to be in a sinus rhythm. Will continue with diltiazem and metoprolol but continue to hold apixaban given the anemia. I will hold her insulin and oral hypoglycemics at this time as she is NPO, and check hemoglobin A1c. Initiate sliding scale insulin, Accu-Cheks, and hypoglycemic protocol. # acute on chronic anemia # iron deficiency anemia intolerant to oral iron # htn # dyslipidema # type 2 DM # atrial fibrillation # aortic stenosis planned TAVR # [facility] anticoagulant use # family hx of colon cancer # colon polyps in the past # s/p pacemaker Apixaban on hold GI workup ongoing continue to mointor h and h occult blood negative. iv venofer ordered. discused [facility] daugther at [facility]. GI and Dr. Mosher consulted. 04/20: egd with nonerovise reflux diase. colonosopy with diverticulsos. no signs of bleedign found. discused with Dr. Cervantes. he is oing to [facility] for op capsule stuydy. she recieved a dos f iv enofer here and earlier tlast week too. dsicusse dwith dr. Mosher who is goig to follow her counts as op basis. okay per consulting physicias to go home. will dc home to [facility] up as op basis. Status at Discharge Overall status at discharge: patient is back to baseline Time Spent with Patient Time attestation:
[2021-04-20 17:48] LABS: Glucose Point of Care 191 mg/dl (65-105)
--- NOTE | 2021-04-20 18:18 | ECG_ITS ---
Measurements Intervals [place] Rate: 118 P: OR: 0 QRS: 29 QRSD: 83 T: -13 QT: 340 QTc: 477 Interpretive Statements ATRIAL FLUTTER/TACHYCARDIA WITH RAPID VENTRICULAR RESPONSE NONSPECIFIC ST & T-WAVE ABNORMALITY- INFERIOR LEADS BASELINE ARTIFACT- I, II, III, AVR, AVL, AVF, V1 ABNORMAL ECG Electronically Signed On 04-20-2021 20:14:26 CDT by Demetri Cabezas D.O.
[2021-04-20] MEDS: APIXABAN 5 MG TABLET PO (20:09)
[2021-04-20 20:20] LABS: Glucose Point of Care 193 mg/dl (65-105)
[2021-04-21] VITALS: PULSE 60
[2021-04-21 04:00] VITALS: PULSE 64
[2021-04-21 05:24] VITALS: BP 142/52; PULSE 60; RESP 18; TEMP 35.9; O2SAT 96
[2021-04-21 05:47] LABS: Basophils Percent Auto 0.5 % (0.2-1.2); Eosinophils Absolute Auto 0.1 K/mm3 (0-0.3); Eosinophils Percent Auto 3.2 % (0-4.4); Hematocrit 31.8 % (37.0-47.0); Hemoglobin 9.3 g/dL (12.0-15.0); Immature Granulocyte Absolute 0.02 K/mm3 (0.00-0.031); Immature Granulocyte Percent A 0.5 % (0-0.5); Lymphocytes Absolute Auto 1.13 K/mm3 (0.9-3.2); Lymphocytes Percent Auto 26.1 % (18.3-44.2); Mean Corpuscular HGB Conc 29.2 g/dl (32-36); Mean Corpuscular Hemoglobin 21.9 pg (26-34); Mean Corpuscular Volume 74.8 fl (80-100); Mean Platelet Volume 9.6 fl (7.4-10.4); Monocytes Absolute Auto 0.4 K/mm3 (0.1-0.6); Monocytes Percent Auto 10.2 % (2.6-8.5); Neutrophils Absolute Auto 2.6 K/mm3 (1.3-6.7); Neutrophils Percent Auto 59.5 % (45.5-73.1); Platelet Count Result 171 k/mm3 (150-375); Red Blood Count 4.25 M/mm3 (4.2-5.4); Red Cell Distribution Width 19.5 % (11.5-14.5); White Blood Count 4.3 K/mm3 (4.5-10.0)
[2021-04-21 06:06] LABS: Anion Gap 10 mmol/L (8-16); Blood Urea Nitrogen 17 mg/dL (7-17); Calcium 9.1 mg/dL (8.4-10.2); Carbon Dioxide 21 mmol/L (22-30); Chloride 111 mmol/L (98-107); Estimated CRCL calculation 42 ml/min; Estimated Glomerular Filt Rate 60; Glucose 208 mg/dL (65-105); Potassium 4.2 mmol/L (3.4-5.0); Sodium 142 mmol/L (137-145)
[2021-04-21 06:27] LABS: Anisocytosis 1+ (NORMAL); Hypochromasia 1+ (NORMAL); Ovalocytes 1+ (NORMAL); Platelet Estimate Adequate (Adequate)
[2021-04-21 08:00] VITALS: PULSE 63
[2021-04-21 08:45] VITALS: PULSE 60
[2021-04-21] MEDS: FENOFIBRATE NANOCRYSTALLIZED 145 MG TABLET PO (08:45)
[2021-04-21] MEDS: APIXABAN 5 MG TABLET PO (08:45)
[2021-04-21] MEDS: ROSUVASTATIN 10 MG TABLET 20 MG PO (08:45)
[2021-04-21] MEDS: dilTIAZem HCL CD 180 MG CAP.ER.24H PO (08:45)
[2021-04-21] MEDS: METOPROLOL TARTRATE 25 MG TABLET PO (08:45)
[2021-04-21 08:52] LABS: Glucose Point of Care 213 mg/dl (65-105)
[2021-04-21] MEDS: INSULIN ASPART (*BKC) 100 UNITS/ML SUB-Q (09:22)
--- NOTE | 2021-04-21 09:38 | WPDGIPROGNO ---
Progress Note: A&P Assessment and Plan (1) Iron deficiency anemia: Code(s): D50.9 - Iron deficiency anemia, unspecified Status: Acute Assessment and Plan: we were going to schedule her for capsule endoscopy of the small bowel after discharge. Unfortunately, she does have a pacemaker and therefore it is a contraindication and we will not be able to do the capsule study (2) Paroxysmal atrial fibrillation: Code(s): I48.0 - Paroxysmal atrial fibrillation Status: Acute Assessment and Plan: she had another episode of AFib and therefore was not discharged yesterday (3) H. pylori infection: Code(s): A04.8 - Other specified bacterial intestinal infections Status: Acute Assessment and Plan: I just a found out the results and discuss this with the patient and her daughter. We will initiate triple therapy with amoxicillin metronidazole and PPI. Clarithromycin is contraindicated because of her calcium channel violet Subjective Date/time seen: 04/21/21 09:38 she is hoping to go home today. Apparently she went into atrial fibrillation yesterday. Denies any new complaints Review of Systems Review of Systems: All systems reviewed & are unremarkable except as noted in HPI and below Exam HENMT: Ears: hearing grossly impaired GI: GI Palp: No abdominal tenderness and Yes Soft to palpation Auscultation: normal bowel sounds Objective Data Vital Signs Vital Signs: Vital Signs - 24 hr 04/20/21 10:53 04/20/21 12:26 04/20/21 12:36 Temperature 36.1 C L Pulse Rate 68 63 62 Respiratory Rate 18 15 15 Blood Pressure 147/70 H 120/52 L 117/47 L Pulse Oximetry 97 93 95 04/20/21 12:46 04/20/21 15:25 04/20/21 18:31 Temperature 36.6 C Pulse Rate 61 68 Respiratory Rate 19 18 Blood Pressure 125/97 H 120/52 L 139/90 Pulse Oximetry 97 95 04/20/21 18:32 04/20/21 20:00 04/20/21 20:02 Temperature 35.8 C L Pulse Rate 65 109 H 82 Respiratory Rate 18 Blood Pressure 130/68 Pulse Oximetry 95 04/21/21 00:00 04/21/21 04:00 04/21/21 05:24 Temperature 35.9 C L Pulse Rate 60 64 60 Respiratory Rate 18 Blood Pressure 142/52 H Pulse Oximetry 96 04/21/21 08:00 04/21/21 08:45 Temperature Pulse Rate 63 60 Respiratory Rate Blood Pressure Pulse Oximetry Intake/Output Intake/Output: Intake & Output 04/18/21 04/19/21 04/20/21 04/21/21 23:59 23:59 23:59 23:59 Intake Total 240 2540 300 Output Total 400 1000 1100 Balance -160 1540 -800 Meds/Results Medications: Active Medications Generic Name Dose Route Start Last Admin Trade Name Freq PRN Reason Stop Dose Admin Apixaban 5 mg 04/20/21 21:00 04/21/21 08:45 Apixaban 5 Mg Tablet PO 5 mg Q12HR CASA Administration Dextrose 12.5 gm 04/19/21 19:19 04/20/21 08:32 Dextrose 50% 25 Gm/50 Ml Syringe IV PUSH 12.5 gm PRN PRN Administration Hypoglycemia Protocol Diltiazem HCl 180 mg 04/19/21 21:00 04/21/21 08:45 Diltiazem Hcl Cd 180 Mg Cap.Er.24h PO 180 mg Q12HR CASA Administration Fenofibrate 145 mg 04/20/21 09:00 04/21/21 08:45 Fenofibrate Nanocrystallized 145 Mg Tablet PO 145 mg DAILY CASA Administration Glucagon 1 mg 04/19/21 19:19 Glucagon For Inj 1 Mg Vial IM PRN PRN Hypoglycemia Protocol Glucose 15 gm 04/19/21 19:19 Glucose Oral Gel 15 Gm Of Glucse In 37.5 Gm Tube PO PRN PRN Hypoglycemia Protocol Dextrose 1,000 mls @ 100 mls/hr 04/19/21 19:19 Dextrose 5% 1,000 Ml IVPB PRN PRN Hypoglycemia Protocol Insulin Aspart 3 - 6 units 04/20/21 08:00 04/21/21 09:22 Insulin Aspart (*Bkc) 100 Units/Ml SUB-Q 3 units TIDWM CASA Administration Protocol Metoprolol Tartrate 25 mg 04/19/21 21:00 04/21/21 08:45 Metoprolol Tartrate 25 Mg Tablet PO 25 mg Q12HR CSAA Administration Rosuvastatin Calcium 20 mg 04/20/21 09:00 04/21/21 08:45 Rosuvastatin 10 Mg Ta
--- NOTE | 2021-04-21 12:48 | PDONCCN ---
[facility] - Date of Consult Date/Time: 04/21/21 12:48 Requesting Physician: Veronica Plata MD Primary Care Provider: Colleen Forde, - Consult Narrative Reason for consult: Iron deficiency anemia Narrative: Una Delong is a 80 year old female with history of atrial fibrillation on anticoagulation therapy along with type 2 diabetes and iron deficiency anemia. Patient had received iron infusion in the past. Her last hemoglobin was more than 12 in September of 2020. Her hemoglobin dropped down to 7 and 8 ranges recently. She denies any bleeding including melena hematochezia. She was admitted to the hospital for GI evaluation. Patient had EGD and colonoscopy performed. Colonoscopy from April 20 showed few small internal hemorrhoids and multiple diverticula without any bleeding. EGD done on the same date showed nonerosive reflux disease. Patient was found to be positive for H pylori. She complain of tiredness and fatigue but denies any bleeding and bruising. She had receive iron infusion. No other new complaints. Review of Systems - Review of Systems All systems reviewed & are unremarkable except as noted in HPI and [facility] Medical History: Medical History (Last Updated 04/19/21 @ 19:24 by Danay Wilson PA-C) Aortic stenosis Dyslipidemia Hypertension Insulin dependent type 2 diabetes mellitus Iron deficiency anemia Paroxysmal atrial fibrillation Surgical History: Surgical History (Last Updated 04/19/21 @ 19:24 by Danay Wilson PA-C) History of cardiac pacemaker in situ History of hysterectomy Family History: Family History (Last Reviewed 04/19/21 @ 22:36 by Danay Wilson PA-C) Father Lung cancer Sibling Lung cancer Mother Colon cancer Meds Home Medications Medication Instructions Recorded Confirmed Type Lantus U-100 Insulin 60 unit SUBCUT DAILY 04/16/21 04/19/21 History diltiazem HCl 180 mg PO BID 04/16/21 04/19/21 History fenofibrate nanocrystallized 145 mg PO DAILY 04/16/21 04/19/21 History glipizide 10 mg PO DAILY 04/16/21 04/19/21 History metformin [Glucophage] 1,000 mg PO DAILY 04/16/21 04/19/21 History metoprolol tartrate 25 mg PO BID 04/16/21 04/19/21 History rosuvastatin 20 mg PO DAILY 04/16/21 04/19/21 History Eliquis 5 mg PO BID 04/19/21 04/19/21 History amoxicillin 1,000 mg PO Q12HR #40 cap 04/21/21 Rx metronidazole 500 mg PO Q12HR #20 tablet 04/21/21 Rx pantoprazole [Protonix] 20 mg PO BID #20 tablet 04/21/21 Rx Allergies Allergy/AdvReac Type Severity Reaction Status Date / Time lisinopril AdvReac Cough Verified 04/20/21 10:52 meperidine [From Demerol] AdvReac Nausea and Verified 04/20/21 10:52 Vomiting Results - Labs CBC & Chem 7: 04/21/21 05:27 04/21/21 05:27 Labs: Short CBC 04/21/21 Range/Units 05:27 WBC 4.3 L (4.5-10.0) K/mm3 Hgb 9.3 L (12.0-15.0) g/dL Hct 31.8 L (37.0-47.0) % Plt Count 171 (150-375) k/mm3 [facility] 04/21/21 05:27 Sodium 142 Potassium 4.2 Chloride 111 H Carbon Dioxide 21 L BUN 17 Creatinine 0.90 Glucose 208 H Calcium 9.1 Assessment and Plan - Additional Plan Microcytic anemia with iron deficiency. Patient received iron infusion. EGD and colonoscopy was performed on April 20 and reports only showed internal hemorrhoid diverticulosis and nonerosive reflux esophagitis with positive H pylori infection. Case was discussed with Dr. Cervantes. Capsule enteroscopy would not be covered by insurance. Patient will receive treatment for H pylori infection under the supervision of Dr. Cervantes. She has completed course of iron infusion and will follow with me in the office next week for repeat blood check and possible iron infusion. Atrial fibrillation. Patient can resume anticoagulation therapy. Patient will follow-up with the director drug for cardiac as on the later date. Exam - Vital Signs Vital Signs - 24 hr 04/20/21 15:25 04/20/21 18:31
== END 2021-04-21 12:00 | disposition home or self-care (01) ==
PROVIDERS: Internal Medicine Gastroenterology; Physician Assistant; Admitting Provider Family Medicine; PCP Internal Medicine; Visit Provider Internal Medicine
PROC: 0DJ08ZZ Inspection of Upper Intestinal Tract, Via Natural or Artificial Opening Endoscopic (ICD-10-PCS; CPT 43235; principal; 2021-04-20 11:30)
DX: D50.9 Iron deficiency anemia, unspecified (principal); K21.00 Gastro-esophageal reflux disease with esophagitis, without bleeding; B96.81 Helicobacter pylori [H. pylori] as the cause of diseases classified elsewhere; K57.30 Diverticulosis of large intestine without perforation or abscess without bleeding; I48.0 Paroxysmal atrial fibrillation; I10 Essential (primary) hypertension; I35.0 Nonrheumatic aortic (valve) stenosis; E11.9 Type 2 diabetes mellitus without complications; E78.5 Hyperlipidemia, unspecified; K64.8 Other hemorrhoids; Z79.01 Long term (current) use of anticoagulants; Z95.0 Presence of cardiac pacemaker; Z90.710 Acquired absence of both cervix and uterus; Z86.010 Personal history of colon polyps
CPT/HCPCS: 43239; 45378; 36415; 80048; 80053; 82948; 83036; 83735; 85025; 85027; 85610; 85730; 86850; 86900; 86901; 87081; 88305; 93005; 96361; 96365; 96375; A9270; G0378; G0379; J1756; J1815; J2704; J7030; J7120

== ENCOUNTER 2023-08-31 07:33 | Outpatient (CLI) | payer MEDICARE, SELFPAY ==
--- NOTE | ~2023-08-31 | NM_ITS ---
EXAMINATION: NM GI bleeding DATE: 08/31/2023 11:14 INDICATION: Chronic anemia. TECHNIQUE: 26.1 mCi Tc 99m in vitro labeled red cells was administered intravenously. Scintigraphic images of the abdomen were obtained for one hour. COMPARISON: None. FINDINGS: No pattern of abnormal activity is seen in the abdomen or pelvis to suggest gastrointestina l hemorrhage. IMPRESSION: 1. No evidence of active gastrointestinal hemorrhage. Reviewed, dictated and finalized at location E.
== END 2023-08-31 07:34 | disposition home or self-care (01) ==
LOC: ANHIMG 07:41
PROVIDERS: PCP Internal Medicine; Visit Provider Internal Medicine Hematology & Oncology
DX: D64.9 Anemia, unspecified (principal)
CPT/HCPCS: 78278; A9560

== ENCOUNTER 2023-11-30 09:05 | Outpatient (CLI) | payer MEDICARE, SELFPAY ==
[2023-11-30 09:32] LABS: Hematocrit 38.5 % (37.0-47.0); Hemoglobin 11.5 g/dL (12.0-15.0); Mean Corpuscular HGB Conc 29.9 g/dl (32-36); Mean Corpuscular Hemoglobin 23.2 pg (26-34); Mean Corpuscular Volume 77.8 fl (80-100); Mean Platelet Volume 10.4 fl (7.4-10.4); Platelet Count Result 157 k/mm3 (150-375); Red Blood Count 4.95 M/mm3 (4.2-5.4); Red Cell Distribution Width 16.5 % (11.5-14.5); White Blood Count 6.7 K/mm3 (4.5-10.0)
[2023-11-30 11:24] LABS: Iron 44 ug/dL (37-170)
[2023-11-30 11:33] LABS: Percent Iron Saturation 9 % (20-50)
[2023-11-30 11:57] LABS: Ferritin 7.32 ng/mL (11.1-264)
== END 2023-11-30 09:06 | disposition home or self-care (01) ==
LOC: ANHLAB 09:07
PROVIDERS: PCP Internal Medicine; Visit Provider Internal Medicine Hematology & Oncology
DX: D64.9 Anemia, unspecified (principal)
CPT/HCPCS: 36415; 82728; 83540; 83550; 85027

== ENCOUNTER 2024-02-02 08:24 | Outpatient (CLI) | payer MEDICARE, SELFPAY ==
[2024-02-02 08:47] LABS: Basophils Absolute Auto 0.1 K/mm3 (0.0-0.1); Basophils Percent Auto 0.9 % (0.2-1.2); Eosinophils Absolute Auto 0.2 K/mm3 (0-0.3); Eosinophils Percent Auto 3.6 % (0-4.4); Hematocrit 37.7 % (37.0-47.0); Hemoglobin 11.6 g/dL (12.0-15.0); Immature Granulocyte Absolute 0.02 K/mm3 (0.00-0.031); Immature Granulocyte Percent A 0.4 % (0-0.5); Lymphocytes Absolute Auto 1.46 K/mm3 (0.9-3.2); Lymphocytes Percent Auto 27.6 % (18.3-44.2); Mean Corpuscular HGB Conc 30.8 g/dl (32-36); Mean Corpuscular Hemoglobin 24.4 pg (26-34); Mean Corpuscular Volume 79.4 fl (80-100); Mean Platelet Volume 9.9 fl (7.4-10.4); Monocytes Absolute Auto 0.5 K/mm3 (0.1-0.6); Monocytes Percent Auto 9.6 % (2.6-8.5); Neutrophils Absolute Auto 3.1 K/mm3 (1.3-6.7); Neutrophils Percent Auto 57.9 % (45.5-73.1); Platelet Count Result 129 k/mm3 (150-375); Red Blood Count 4.75 M/mm3 (4.2-5.4); Red Cell Distribution Width 17.2 % (11.5-14.5); White Blood Count 5.3 K/mm3 (4.5-10.0)
[2024-02-02 12:10] LABS: Iron 61 ug/dL (37-170); Percent Iron Saturation 14 % (20-50)
[2024-02-02 12:25] LABS: Ferritin 8.24 ng/mL (11.1-264)
== END 2024-02-02 08:25 | disposition home or self-care (01) ==
PROVIDERS: PCP Internal Medicine; Visit Provider Internal Medicine Hematology & Oncology
DX: D64.9 Anemia, unspecified (principal)
CPT/HCPCS: 36415; 82728; 83540; 83550; 85025

== ENCOUNTER 2024-04-16 14:13 | Outpatient (CLI) | payer MEDICARE, SELFPAY ==
[2024-04-16 14:34] LABS: Hematocrit 38.7 % (37.0-47.0); Hemoglobin 12.1 g/dL (12.0-15.0); Mean Corpuscular HGB Conc 31.3 g/dl (32-36); Mean Corpuscular Hemoglobin 25.6 pg (26-34); Mean Corpuscular Volume 81.8 fl (80-100); Mean Platelet Volume 10.2 fl (7.4-10.4); Platelet Count Result 117 k/mm3 (150-375); Red Blood Count 4.73 M/mm3 (4.2-5.4); Red Cell Distribution Width 15.3 % (11.5-14.5); White Blood Count 6.2 K/mm3 (4.5-10.0)
[2024-04-16 16:54] LABS: Iron 70 ug/dL (37-170)
[2024-04-16 17:04] LABS: Percent Iron Saturation 15 % (20-50)
[2024-04-16 18:46] LABS: Folic Acid 8.2 ng/mL (2.76->20); Vitamin B12 > 1000.0 pg/mL (239-931)
== END 2024-04-16 14:14 | disposition home or self-care (01) ==
LOC: ANHLAB 14:16
PROVIDERS: PCP Internal Medicine; Visit Provider Internal Medicine Hematology & Oncology
DX: D64.9 Anemia, unspecified (principal)
CPT/HCPCS: 36415; 82607; 82728; 82746; 83540; 83550; 85027